=== PATIENT | male | born 1945 | race Hispanic/Latino ===

== ENCOUNTER 2018-08-30 08:46 | Emergency (ER) | payer MEDICARE ==
[~2018-08-30] VITALS: Ht 170.2 cm; Wt 85.3 kg
[2018-08-30] MEDS ORDERED: METFORMIN HCL500 MG PO (09:14)
[2018-08-30] MEDS ORDERED: LOSARTAN-HCTZ1 EAC2 (09:15)
[2018-08-30] MEDS ORDERED: PREVACID30 MG (09:16)
[2018-08-30] MEDS ORDERED: COREG3.125 MG (09:17)
[2018-08-30 09:26] VITALS: BP 125/78
== END 2018-08-30 09:28 | disposition home or self-care (01) ==
LOC: FSED 08:46
DX: H91.91 Unspecified hearing loss, right ear (principal); H61.21 Impacted cerumen, right ear; R05 Cough; J20.9 Acute bronchitis, unspecified; R09.82 Postnasal drip; I10 Essential (primary) hypertension; E11.9 Type 2 diabetes mellitus without complications; K21.9 Gastro-esophageal reflux disease without esophagitis; Z95.1 Presence of aortocoronary bypass graft
CPT/HCPCS: 82948; 99282

== ENCOUNTER 2018-09-01 09:39 | Emergency (ER) | payer MEDICARE ==
[~2018-09-01] VITALS: Ht 170.2 cm; Wt 83.9 kg
[~2018-09-01 09:39] MED LIST: COREG3.125 MG; LOSARTAN-HCTZ1 EAC2; METFORMIN HCL500 MG PO; PREVACID30 MG
[2018-09-01] MEDS ORDERED: PROAIR HFA INH8.5 GM INH (10:27)
== END 2018-09-01 10:38 | disposition home or self-care (01) ==
LOC: FSED 09:39
DX: J20.9 Acute bronchitis, unspecified (principal); H61.21 Impacted cerumen, right ear; E11.9 Type 2 diabetes mellitus without complications; I10 Essential (primary) hypertension; E78.5 Hyperlipidemia, unspecified; Z79.84 Long term (current) use of oral hypoglycemic drugs
CPT/HCPCS: 99282